=== PATIENT | male | born 1975 ===

== ENCOUNTER 2018-09-11 13:33 | Emergency (ER) | payer SELFPAY ==
[2018-09-11 14:09] LABS: #Eosinphils 0.2 thou/uL (0.0-0.7); #Lymphocytes 0.7 thou/uL (1.20-3.40); #Monocytes 0.9 thou/uL (0.11-0.59); #Neutrophils 11.8 thou/uL (1.40-6.50); %Basophils 0.2 % (0.0-1.0); %Eosinophils 1.1 % (0.0-10.0); %Lymphocytes 5.1 % (21.0-51.0); %Monocytes 6.3 % (0.0-10.0); %Neutrophils 87.2 % (42.0-75.0); Hemoglobin 15.1 g/dL (14.0-18.0); Mean Corpuscular HGB CONC 32.4 g/dL (32.0-36.0); Mean Corpuscular Hemoglobin 26.2 pg (27.0-31.0); Mean Corpuscular Volume 80.9 fL (78.0-98.0); Mean Platelet Volume 7.2 fL (7.4-10.4); Platelet Count 335 thou/uL (130-400); RBC Distribution Width 12.9 % (11.5-14.5); Red Blood Cell (RBC) Count 5.76 mill/uL (4.70-6.10); White Blood Cell (WBC) Count 13.5 thou/uL (4.8-10.8)
[2018-09-11] MEDS ORDERED: Ondansetron PF 4 MG/2 ML Vial ONE (14:11)
[2018-09-11 14:24] LABS: ALT (SGPT) 42 U/L (8-55); AST (SGOT) 24 U/L (5-34); Albumin 4.6 g/dL (3.5-5.0); Alkaline Phosphatase 57 U/L (40-150); Anion Gap 15 mmol/L (10-20); BUN (Urea Nitrogen) 17 mg/dL (8.9-20.6); Bilirubin, Total 0.6 mg/dL (0.2-1.2); Calc. Creatinine Clearance 0 mL/min (70-130); Calcium 9.7 mg/dL (7.8-10.44); Carbon Dioxide 26 mmol/L (22-29); Chloride 104 mmol/L (98-107); Estimated GFR-MDRD 69; Globulin 2.3 g/dL (2.4-3.5); Glucose 91 mg/dL (70-105); Potassium 5.4 mmol/L (3.5-5.1); Protein, Total 6.9 g/dL (6.0-8.3); Sodium 140 mmol/L (136-145)
--- NOTE | 2018-09-11 15:19 | CT ---
CT BRAIN: HISTORY: Syncope. TECHNIQUE: Noncontrast enhanced CT images of the brain obtained. FINDINGS: CT images of the brain demonstrate the brain to be unremarkable. No evidence of intracranial masses, hemorrhages, strokes, or contusions seen. The ventricles are of normal size. IMPRESSION: Normal CT brain. POS: [facility]
[2018-09-11 15:20] LABS: Potassium 5.3 mmol/L (3.5-5.1)
[2018-09-11 16:04] LABS: Bilirubin Negative (Negative); Blood, Urine Negative (Negative); Clarity CLEAR (Clear); Glucose, Urine (Dipstick) Negative (Negative); Leukocyte Negative (Negative); Nitrite Negative (Negative); Protein, Urine (Dipstick) Negative (Neg-Trace); Urobilinogen 0.2 mg/dL (0.2-1.0)
--- NOTE | 2018-09-11 16:54 | RAD ---
FRONTAL VIEW CHEST: COMPARISON: No prior comparison. INDICATION: Syncope. FINDINGS: No focal consolidation, effusion, or pneumothorax. Mild elevation of the right hemidiaphragm is pres ent. cardiac silhouette is normal in size for the portable technique. Osseous structures intact. IMPRESSION: No focal consolidation. POS: [facility]
--- NOTE | 2018-09-16 23:46 | EKG ---
Test Reason : Blood Pressure : / mmHG Vent. Rate : 093 BPM Atrial Rate : 093 BPM P-R Int : 162 ms QRS Dur : 090 ms QT Int : 360 ms P-R-T Axes : 053 030 024 degrees QTc Int : 447 ms Normal sinus rhythm Normal ECG Confirmed by ELKIN QUESADA DO ([id number]), science editor JEFFERY SQUIRES ([id number] on 09/16/2018 11:45:35 PM Referred By: Confirmed By:ELKIN QUESADA DO
== END 2018-09-11 16:07 | disposition home or self-care (01) ==
LOC: ERS 13:33
DX: R55 Syncope and collapse (principal)
CPT/HCPCS: 36415; 70450; 71045; 80053; 81003; 84484; 85025; 93005; 96361; 96374; J2405